=== PATIENT | male | born 1985 | race Caucasian/White ===

== ENCOUNTER 2019-03-22 09:41 | Day surgery (SDC) | payer OTHER ==
[2019-03-22] MEDS ORDERED: CEFAZOLIN SODIUM IN 0.9 % NACL 2 GM/100 ML BAG IV ONE (10:03)
--- NOTE | 2019-03-22 10:08 | ANESTHESIA ---
Pre-Anesthesia VS, & Labs - Diagnosis inflammatory reaction to hardware - Procedure Removal Hardware Right Jaw Vital Signs: 126/71, 100%, 68, 16, 36.7 - NPO >8 hours Home Medications and Allergies Home Medications: Ambulatory Orders Amoxicillin 500 mg PO TID 03/17/19 Amoxicillin 500 mg PO TID 03/17/19 Allergies/Adverse Reactions: Allergies Allergy/AdvReac Type Severity Reaction Status Date / Time melon Allergy throat Verified 03/17/19 13:39 itches Anes History & Medical History - Anesthetic History Anesthesia Complications: reports: No previous complications - Medical History Cardiovascular: reports: None Pulmonary: reports: None Gastrointestinal: reports: None Urinary: reports: None Musculoskeletal: reports: None Endocrine/Autoimmune: reports: None, Other (elevated BMI) Skin: reports: Other Smoking Status: Never smoker - Surgical History Orthopedic: Other (jaw surgery x2) Exam General: Alert Dental: WNL Mouth Opening: Greater than 4 Fingerbreadths Neck Mobility: Normal Mallampati classification: II Thyromental Distance: greater than 6 cm Respiratory: Lungs clear Cardiovascular: Regular rate, Normal S1, Normal S2 Plan Anesthesia Type: General Consent for Procedure(s) Verified and Reviewed: Yes Code Status: Attempt Resuscitation ASA classification: 2-Mild systemic disease Is this case an emergency?: No
[2019-03-22] MEDS ORDERED: LACTATED RINGERS 1,000 ML IV ONE ×2 (10:21→16:40)
[2019-03-22] MEDS ORDERED: LIDOCAINE MPF 2%-EPI 1:200000 20 ML VIAL ONE (12:23)
[2019-03-22] MEDS ORDERED: CHLORHEXIDINE GLUCONATE 15 ML UDC PO ONE (12:24)
[2019-03-22] MEDS ORDERED: LIDOCAINE MPF 2%-EPI 1:200000 20 ML VIAL SUBQ ONE ×2 (13:42)
[2019-03-22] MEDS ORDERED: PROPOFOL 200 MG/20 ML VIAL IVP ONE (13:50)
[2019-03-22] MEDS ORDERED: fentaNYL 250 MCG/5 ML VIAL IVP ONE (13:50)
[2019-03-22] MEDS ORDERED: LIDOCAINE-MPF 2% 5 ML VIAL IM ONE (13:50)
[2019-03-22] MEDS ORDERED: DEXAMETHASONE 4 MG/ML VIAL IVP ONE (13:50)
[2019-03-22] MEDS ORDERED: ACETAMINOPHEN 1,000 MG/100 ML 100 ML IV ONE (13:50)
[2019-03-22] MEDS ORDERED: ROCURONIUM 50 MG/5 ML VIAL IVP ONE (13:50)
[2019-03-22] MEDS ORDERED: MIDAZOLAM 2 MG/2 ML VIAL IVP ONE (13:50)
[2019-03-22] MEDS ORDERED: ONDANSETRON 4 MG/2 ML VIAL IVP ONE (13:50)
[2019-03-22] MEDS: fentaNYL 100 MCG/2 ML VIAL ONE ×2 (16:19→16:24)
[2019-03-22] MEDS ORDERED: oxyCODONE 5 MG TABLET PO PRN (16:44)
[2019-03-22] MEDS ORDERED: MORPHINE 2 MG/ML CARPUJECT IVP PRN (16:44)
[2019-03-22] MEDS ORDERED: ONDANSETRON 4 MG/2 ML VIAL IVP PRN (16:45)
[2019-03-22] MEDS ORDERED: KETOROLAC 15 MG/ML VIAL ONE (16:52)
[2019-03-22 17:32] VITALS: BP 128/89
--- NOTE | 2019-03-23 08:31 | OPERATIVE REPORT ---
DATE OF SERVICE: 03/22/2019 Physician: Jamal Maher DDS PROCEDURES PERFORMED 1. Removal of deep hardware from the right mandible. 2. Osteoplasty of the right mandible. 3. Removal of deep hardware from the mandibular symphysis. 4. Osteoplasty of the mandibular symphysis. 5. Removal of deep hardware from the left mandible. 6. Osteoplasty of the left mandible. 7. Removal of deep hardware from the right maxilla. 8. Osteoplasty of the right maxilla. 9. Removal of deep hardware from the left maxilla. 10. Osteoplasty of the left maxilla. 11. Excision of chronic fistula from the right mandibular vestibule with closure of the soft tissues. The resultant wound was 2.5 cm in length and 1 cm in diameter PREOPERATIVE DIAGNOSES 1. 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 2. Chronic sinusitis of the bilateral maxillary sinuses of unclear etiology. PRIMARY SURGEON: Jamal Maher DDS ASSISTANTS: Monique and Tessie. ANESTHESIA TYPE: General anesthesia via nasal endotracheal intubation. ANESTHETISTS: Anton and Vonda. DRAINS, PACKS, CATHETERS: None. IMPLANTS REMOVED: Nine plates and their associated screws. All hardware was removed with the exception of three positional screws that were placed in the left mandible. ESTIMATED BLOOD LOSS: 50 mL COMPLICATIONS: None. INDICATIONS FOR PROCEDURE: Patient is a 33-year-old male who has a history of orthognathic surgery. For the past several years, he has had recurrent abscesses of the right mandible secondary to exposed hardware. Clinical and radiographic examination was consistent with hardware in the right mandible. He also was having problems with chronic sinusitis of an unclear etiology that has been occurring ever since his surgery. There is concern for future exposure of the hardware of the left mandible as well, because of its superior location, as well as concern that the hardware in the maxilla is causing the chronic sinusitis. It was decided that removal of the hardware was indicated. The risks, benefits and alternatives of this plan were discussed with patient including pain, swelling, bleeding, infection, need for further surgeries, osteomyelitis. Adequate time was given to answer all questions and informed consent was obtained. DESCRIPTION OF PROCEDURE: Patient was brought to the main operating room and placed in a supine position on the operating table. General anesthesia was induced by the anesthesia team and the airway was secured with a nasal endotracheal tube, which was secured to the forehead. Patient was prepped and draped in the standard sterile fashion for removal of hardware from the face. All pressure points were padded and checked. The eyes were protected with Tegaderms. A formal timeout was executed. Local anesthesia was achieved with 9 mL of 2% lidocaine with 1:100,000 epinephrine. A throat pack was placed. Attention was directed to the right mandible. An incision was made down to bone. Subperiosteal dissection was performed. The incision went around the fistula of the right mandible, and this was excised. Care was taken not to carry out the incision too far anteriorly because of the presence of the mental nerve. A company tanker truck driver was used to back out most of the screws, but some of the screws could only be accessed through a trocar incision. A trocar incision was made in the right cheek, 115 blade width and length. The instruments were then passed through the trocar incision to remove the remaining screws. The plate was then removed and osteoplasty was performed with rotary instruments under copious irrigation. The positional screws, 3 of them of the right mandible were then also removed. This was extremely difficult and was accomplished only after a significant struggle. Attention was then directed to the right maxilla. A keen incision was made down to bone. Subperiosteal dissection was performed and all 3 of the plates were exposed. The screws were backed out with a company tanker truck driver. Some of the screws were very integrated into the bone and had to be removed by removing some of the bone around the implants in a trephine fashion. Once all the hardware was removed, osteoplasty of the right maxilla was performed under copious irrigation. The site was copiously irrigated. The right mandible was also copiously irrigated and both sites were closed with 3-0 chromic gut suture. Attention was then directed to the anterior mandible. An incision was made in the depth of the vestibule down to bone. The hardware was easily encountered. Subperiosteal dissection was performed to uncover the hardware completely. Again, this hardware was very well integrated into the mandible and had to be removed by creating small trephine osteotomies around three of the screws. The hardware was all completely removed, and osteoplasty of the anterior mandible was performed. Site was irrigated copiously, and the wound was closed with 3-0 chromic gut suture. Attention was directed to the left mandible. An incision was made down to bone. The plate was easily encountered. Subperiosteal dissection was performed. the plate and the screws were removed by unscrewing the screws. Removal of the screws in this area was somewhat difficult a trochar incision needed to be made and the company tanker truck driver directed at a better angle. 1 of the screws had to be removed by using the bur to remove bone around the screw. After this was done an osteoplasty was performed and the site was irrigated copiously. The wound was then closed. The 3 positional screws that were further posterior in the mandible were left in place. The wound was closed with a 4-0 chromic gut suture. Attention was then directed to the left maxilla. a keen incision down to bone was performed. Subperiosteal dissection was performed and the plates were easily encountered. The screws were backed out with a company tanker truck driver. The plates were removed. Bone had to be removed especially over the anterior 2 plates in order to remove the screws and the plates. Osteoplasty of the left maxilla was performed with a bur. The site was copiously irrigated.the wound was closed with 4-0 chromic gut suture. The mouth was cleansed and the throat pack was removed. The patient's face was cleansed and the eyes were irrigated. Care of the patient was returned to the anesthesia team. The patient was uneventfully emerged from anesthesia and extubated. He was stable at the time of his transfer to the PACU. TD: 03/22/2019 16:40 MTDD
== END 2019-03-22 09:42 | disposition home or self-care (01) ==
LOC: SDS 09:41
PROVIDERS: ATTEND Dentist Oral and Maxillofacial Surgery
PROC: 0NPW04Z Removal of Internal Fixation Device from Facial Bone, Open Approach (ICD-10-PCS; principal; 2019-03-22 11:45)
DX: T84.69XA Infection and inflammatory reaction due to internal fixation device of other site, initial encounter (principal); Y83.8 Other surgical procedures as the cause of abnormal reaction of the patient, or of later complication, without mention of misadventure at the time of the procedure; M89.8X8 Other specified disorders of bone, other site; D89.89 Other specified disorders involving the immune mechanism, not elsewhere classified; Z87.76 Personal history of (corrected) congenital malformations of integument, limbs and musculoskeletal system; Z98.890 Other specified postprocedural states
CPT/HCPCS: 20680; A9270; J0131; J0690; J3010; J7120

== ENCOUNTER 2019-04-04 21:45 | Emergency (ER) | payer OTHER ==
[2019-04-04 22:18] LABS: BASOPHILS # (AUTO) 0.1 10^3/uL (0.0-0.1); BASOPHILS % (AUTO) 0.8 %; EOSINOPHILS # (AUTO) 0.5 10^3/uL (0.0-0.7); EOSINOPHILS % (AUTO) 5.5 %; HGB - HEMOGLOBIN 13.9 g/dL (14.0-18.0); LYMPHOCYTES # (AUTO) 3.3 10^3/uL (1.5-3.5); LYMPHOCYTES % (AUTO) 33.2 %; MEAN CORPUSCULAR HEMOGLOBIN 31.1 pg (27.0-31.0); MEAN CORPUSCULAR HGB CONC 34.3 g/dL (32.0-36.0); MEAN CORPUSCULAR VOLUME 90.6 fL (80.0-94.0); MEAN PLATELET VOLUME 10.6 fL (7.4-11.4); MONOCYTES # (AUTO) 0.6 10^3/uL (0.0-1.0); MONOCYTES % (AUTO) 5.7 %; NEUTROPHILS # (AUTO) 5.4 10^3/uL (1.5-6.6); NEUTROPHILS % (AUTO) 54.4 %; PLT - PLATELET COUNT 232 10^3/uL (130-450); RED BLOOD COUNT 4.47 10^6/uL (4.70-6.10); RED CELL DISTRIBUTION WIDTH 12.4 % (12.0-15.0); WHITE BLOOD COUNT 9.8 x10^3/uL (4.8-10.8)
--- NOTE | 2019-04-04 22:28 | ED Physician Documentation ---
PD HPI ABD PAIN - Stated complaint Stated Complaint: ABD/BACK PX/NAUSEA/VOM - Chief complaint Chief Complaint: Abd Pain - History obtained from History obtained from: Patient - History of Present Illness Timing - onset: Enter time (20:00), Today Timing - details: Abrupt onset, Waxing and waning Pain level now: 2 Quality: Pain Location: Epigastric Radiation: Other (radiates across mid/upper abdomen "like a band across my stomach" (per patient)) Improved by: Other (nothing) Worsened by: Other (no exacerbating factors) Associated symptoms: Nausea, Vomiting. No: Fever, Diarrhea, Constipation Similar symptoms before: Has not had sx before Recently seen: Not recently seen - Additional information Additional information: symptoms have nearly resolved by the time of this evaluation. c/o sudden onset abdominal pain across upper abdomen with nausea and vomiting. Onset 8 PM while at home at rest. Review of Systems Constitutional: reports: Reviewed and negative Cardiac: reports: Reviewed and negative Respiratory: reports: Reviewed and negative GI: reports: Abdominal Pain, Nausea, Vomiting. denies: Constipation, Diarrhea : denies: Dysuria, Frequency Musculoskeletal: denies: Back pain PD PAST MEDICAL HISTORY - Past Medical History Past Medical History: Yes Cardiovascular: None Respiratory: None Endocrine/Autoimmune: None, Other GI: None : None HEENT: Chronic sinusitis Musculoskeletal: None Derm: Other - Past Surgical History Past Surgical History: Yes Ortho: Other - Present Medications Home Medications: Ambulatory Orders Medication Instructions Recorded Confirmed No Known Home Medications 04/04/19 04/04/19 - Allergies Allergies/Adverse Reactions: Allergies Allergy/AdvReac Type Severity Reaction Status Date / Time melon Allergy throat Verified 04/04/19 22:02 itches - Social History Does the pt smoke?: No Smoking Status: Never smoker Does the pt drink ETOH?: Yes Does the pt have substance abuse?: No - Immunizations Immunizations are current?: Yes - POLST Patient has POLST: No PD ED PE NORMAL - Vitals Vital signs reviewed: Yes - General General: Alert and oriented X 3, No acute distress, Well developed/nourished - Cardiac Cardiac: RRR, No murmur - Respiratory Respiratory: No respiratory distress, Clear bilaterally - Abdomen Abdomen: Soft, Non tender, Non distended - Back Back: No CVA TTP - Derm Derm: Normal color, Warm and dry Results - Vitals Vitals: Vital Signs - 24 hr 04/04/19 04/04/19 04/05/19 22:00 23:03 00:06 Temperature 36.7 C 37.0 C Heart Rate 79 73 79 Respiratory 18 15 16 Rate Blood Pressure 137/94 H 130/82 H 125/76 O2 Saturation 99 99 100 04/05/19 01:50 Temperature 36.5 C Heart Rate 77 Respiratory 18 Rate Blood Pressure 124/76 O2 Saturation 100 Oxygen O2 Source Room air - Labs Labs: Laboratory Tests 04/04/19 04/04/19 04/04/19 22:10 22:10 23:45 WBC 9.8 RBC 4.47 L Hgb 13.9 L Hct 40.5 L MCV 90.6 MCH 31.1 H MCHC 34.3 RDW 12.4 Plt Count 232 MPV 10.6 Neut # (Auto) 5.4 Lymph # (Auto) 3.3 [place] # (Auto) 0.6 Eos # (Auto) 0.5 Baso # (Auto) 0.1 Absolute Nucleated RBC 0.00 Nucleated RBC % 0.0 Sodium 141 Potassium 3.3 L Chloride 105 Carbon Dioxide 28 Anion Gap 8.0 BUN 13 Creatinine 0.9 Estimated GFR (MDRD) 97 Glucose 109 H Calcium 9.3 Total Bilirubin 0.4 AST 23 ALT 44 Alkaline Phosphatase 49 Total Protein 7.9 Albumin 4.7 Globulin 3.2 Albumin/Globulin Ratio 1.5 Lipase 52 H Urine Color YELLOW Urine Clarity CLEAR Urine pH 6.0 Ur Specific [place] 1.015 Urine Protein NEGATIVE Urine Glucose (UA) NEGATIVE Urine Ketones NEGATIVE Urine Occult Blood NEGATIVE Urine Nitrite NEGATIVE Urine Bilirubin NEGATIVE Urine Urobilinogen 0.2 (NORMAL) Ur Leukocyte Esterase NEGATIVE Ur Microscopic Review NOT INDICATED Urine Culture Comments NOT INDICATED - Rads (name of study) RUQ US Radiology: Prelim report reviewed, See rad report PD MEDICAL DECISION MAKING - ED course Complexity details: reviewed results, re-evaluated patient, considered differential, d/w patient Departure - Departure Disposition: 01 Home, Self Care Clinical Impression: Abdominal pain Condition: Good Instructions: ED Gallstone W Biliary Colic, ED Abdominal Pain Unkn Cause Male Follow-Up: Alden Sharma MD [Provider Admit Priv/Credential] - Discharge Date/Time: 04/05/19 02:01
[2019-04-04 22:33] LABS: ALBUMIN 4.7 g/dL (3.2-5.5); ALBUMIN/GLOBULIN RATIO 1.5 (1.0-2.2); BILIRUBIN,TOTAL 0.4 mg/dL (0.2-1.0); CALCIUM 9.3 mg/dL (8.5-10.3); CREATININE 0.9 mg/dL (0.6-1.2); TOTAL PROTEIN 7.9 g/dL (6.7-8.2)
[2019-04-05 00:08] LABS: BILIRUBIN,URINE NEGATIVE (NEGATIVE); GLUCOSE, URINE (UA) NEGATIVE (NEGATIVE); KETONES,URINE (UA) NEGATIVE (NEGATIVE); LEUKOCYTE ESTERASE, URINE NEGATIVE (NEGATIVE); NITRITE,URINE NEGATIVE (NEGATIVE); OCCULT BLOOD,URINE NEGATIVE (NEGATIVE); PROTEIN,URINE NEGATIVE (NEGATIVE); UROBILINOGEN,URINE 0.2 (NORMAL) E.U./dL (NORMAL)
[2019-04-05 00:09] LABS: CLARITY,URINE CLEAR (CLEAR)
--- NOTE | 2019-04-05 01:32 | Ultrasound Report ---
Reason: RUQ, epigastric pain Procedure Date: 04/05/2019 Accession Number: [id number] / [id number] Procedure: US - Abdomen Limited CPT Code: FULL RESULT: EXAM: ABDOMEN ULTRASOUND LIMITED, RUQ EXAM DATE: 04/05/2019 01:17 AM. CLINICAL HISTORY: RUQ, epigastric pain. COMPARISON: None. TECHNIQUE: Real-time scanning was performed with static images obtained. FINDINGS: Liver: Echogenic. 14.5 cm. Main portal vein flow: Hepatopetal. Gallbladder: Gallbladder polyps are suspected. There may be a small stone as well. Wall thickness is normal at 2.7 mm. No focal tenderness is noted over the gallbladder. Biliary System: CBD measures 2.8 mm. No intrahepatic or extrahepatic ductal dilatation. Other: Right kidney measures 11.4 cm and appears normal. Inferior vena cava is patent where seen. Pancreas is not well seen due to body habitus and bowel gas. IMPRESSION: 1. Probable gallbladder polyps and possibly a small stone, but no evidence of cholecystitis. 2. Fatty liver. RADIA
[2019-04-05] MEDS ORDERED: POTASSIUM CHLORIDE 20 MEQ TABLET PO STA (01:48)
[2019-04-05 02:01] VITALS: BP 124/76
== END 2019-04-05 02:01 | disposition home or self-care (01) ==
LOC: ED 21:45
DX: R10.9 Unspecified abdominal pain (principal)
CPT/HCPCS: 36415; 76705; 80053; 81003; 83690; 85025; 99282; 99284; A9270; 81001; 87086

== ENCOUNTER 2020-07-31 16:51 | Day surgery (SDC) | payer OTHER ==
[2020-07-31 17:25] LABS: BASOPHILS # (AUTO) 0.1 10^3/uL (0.0-0.1); BASOPHILS % (AUTO) 0.7 %; EOSINOPHILS # (AUTO) 0.3 10^3/uL (0.0-0.7); EOSINOPHILS % (AUTO) 2.7 %; HGB - HEMOGLOBIN 14.9 g/dL (14.0-18.0); LYMPHOCYTES % (AUTO) 20.4 %; MEAN CORPUSCULAR HEMOGLOBIN 30.9 pg (27.0-31.0); MEAN CORPUSCULAR HGB CONC 33.9 g/dL (32.0-36.0); MEAN CORPUSCULAR VOLUME 91.1 fL (80.0-94.0); MEAN PLATELET VOLUME 10.5 fL (7.4-11.4); MONOCYTES # (AUTO) 0.7 10^3/uL (0.0-1.0); MONOCYTES % (AUTO) 6.8 %; NEUTROPHILS # (AUTO) 6.7 10^3/uL (1.5-6.6); NEUTROPHILS % (AUTO) 69.1 %; PLT - PLATELET COUNT 190 10^3/uL (130-450); RED BLOOD COUNT 4.82 10^6/uL (4.70-6.10); RED CELL DISTRIBUTION WIDTH 12.4 % (12.0-15.0); WHITE BLOOD COUNT 9.7 x10^3/uL (4.8-10.8)
[2020-07-31] MEDS ORDERED: IOVERSOL 320 100 ML VIAL IVP ONE ×2 (17:31→18:29)
[2020-07-31 17:40] LABS: ALBUMIN 5.2 g/dL (3.2-5.5); ALBUMIN/GLOBULIN RATIO 1.6 (1.0-2.2); CALCIUM 9.4 mg/dL (8.5-10.3); CREATININE 0.8 mg/dL (0.6-1.2); TOTAL PROTEIN 8.4 g/dL (6.7-8.2)
--- NOTE | 2020-07-31 18:24 | CT Report ---
PROCEDURE: Abdomen/Pelvis W INDICATIONS: RLQ abd pain CONTRAST: IV CONTRAST: Optiray 320 ml: 100 PO CONTRAST: *NO PO CONTRAST TECHNIQUE: After the administration of intravenous contrast, 5 mm thick sections acquired from the diaphragms to the symphysis. 5 mm thick coronal and sagittal reformats were acquired. For radiation dose reducti on, the following was used: automated exposure control, adjustment of mA and/or kV according to casandra ent size. COMPARISON: None. FINDINGS: Image quality: Excellent. ABDOMEN: Lung bases: Lung bases are clear. Heart size is normal. Solid organs: Liver and spleen are normal in size and enhancement. Gallbladder within normal limits . Biliary system is non dilated. Pancreas enhances normally. No adrenal nodules. Kidneys demonstr ate normal size and enhancement, without hydronephrosis. Peritoneum and bowel: There is an appendicolith at the base of the appendix measuring approximately 3 mm. The appendix is dilated up to 1.3 cm with wall thickening and mucosal hyperenhancement, along wi th adjacent fluid and fat stranding. Remaining bowel is unremarkable. Nodes and vessels: No retroperitoneal or mesenteric adenopathy by size criteria. Aorta and inferior vena cava are normal in size. Miscellaneous: No ventral hernias. PELVIS: Genitourinary: Bladder wall thickness is normal. Miscellaneous: No inguinal hernias or adenopathy. Bones: No suspicious bony lesions. No vertebral body compression fractures. IMPRESSION: Findings of acute appendicitis without evidence of rupture or abscess. Reviewed by: César Singer MD on 07/31/2020 6:23 PM PST Approved by: César Singer MD on 07/31/2020 6:23 PM PST Station ID: [id number]
--- NOTE | 2020-07-31 18:24 | ED Physician Documentation ---
PD HPI ABD PAIN - Stated complaint Stated Complaint: ABD PX - Chief complaint Chief Complaint: Abd Pain - History obtained from History obtained from: Patient - History of Present Illness Associated symptoms: No: Fever, Hematemesis, Diarrhea, Constipation, Melena - Additional information Additional information: 35-year-old male presents to the emergency department the right lower quadrant abdominal pain today. Started approximately 5 AM. Has gradually worsened throughout the day. Decreased appetite. He states that he did have half a sandwich at about 4 PM. No vomiting. No nausea. No fevers. No diarrhea. No constipation. Worse with movement, better with rest. No abdominal surgeries in the past. Review of Systems Constitutional: denies: Fever, Chills GI: denies: Vomiting, Diarrhea Skin: denies: Rash Musculoskeletal: denies: Neck pain, Back pain Neurologic: denies: Headache PD PAST MEDICAL HISTORY - Past Medical History Past Medical History: Yes Cardiovascular: None Respiratory: None Endocrine/Autoimmune: None, Other GI: None : None HEENT: Chronic sinusitis Musculoskeletal: None Derm: Other - Past Surgical History Past Surgical History: Yes Ortho: Other - Present Medications Home Medications: Ambulatory Orders Medication Instructions Recorded Confirmed No Known Home Medications 04/04/19 07/31/20 - Allergies Allergies/Adverse Reactions: Allergies Allergy/AdvReac Type Severity Reaction Status Date / Time melon Allergy throat Verified 07/31/20 17:06 itches - Social History Does the pt smoke?: No Smoking Status: Never smoker Does the pt drink ETOH?: Yes Does the pt have substance abuse?: No - Immunizations Immunizations are current?: Yes - POLST Patient has POLST: No PD ED PE NORMAL - Vitals Vital signs reviewed: Yes - General General: Alert and oriented X 3, No acute distress, Well developed/nourished - HEENT HEENT: Moist mucous membranes - Neck Neck: Supple, no meningeal sign - Cardiac Cardiac: RRR, Strong equal pulses - Respiratory Respiratory: No respiratory distress, Clear bilaterally - Abdomen Abdomen: Soft, Non distended, Other (Tender to palpation over the right lower quadrant, at McBurney's point. Positive rebound and guarding. Negative Rovsing and obturator signs) - Back Back: No CVA TTP - Derm Derm: Warm and dry - Neuro Neuro: Alert and oriented X 3 Results - Vitals Vitals: Vital Signs - 24 hr 07/31/20 07/31/20 07/31/20 17:00 19:21 20:09 Temperature 37.3 C 37.3 C 37.0 C Heart Rate 87 83 Heart Rate [ 74 Brachial] Respiratory 16 16 16 Rate Blood Pressure 134/89 H 111/83 H Blood Pressure 138/89 H [Left Brachial artery] O2 Saturation 97 98 100 Oxygen O2 Source Room air - Labs Labs: Laboratory Tests 07/31/20 07/31/20 07/31/20 17:11 17:11 18:30 WBC 9.7 RBC 4.82 Hgb 14.9 Hct 43.9 MCV 91.1 MCH 30.9 MCHC 33.9 RDW 12.4 Plt Count 190 MPV 10.5 Neut # (Auto) 6.7 H Lymph # (Auto) 2.0 [place] # (Auto) 0.7 Eos # (Auto) 0.3 Baso # (Auto) 0.1 Absolute Nucleated RBC 0.00 Nucleated RBC % 0.0 Sodium 138 Potassium 3.4 L Chloride 101 Carbon Dioxide 27 Anion Gap 10.0 BUN 12 Creatinine 0.8 Estimated GFR (MDRD) 109 Glucose 100 Calcium 9.4 Total Bilirubin 1.0 AST 22 ALT 32 Alkaline Phosphatase 56 Total Protein 8.4 H Albumin 5.2 Globulin 3.2 Albumin/Globulin Ratio 1.6 Lipase 31 Urine Color Urine Clarity Urine pH Ur Specific [place] Urine Protein Urine Glucose (UA) Urine Ketones Urine Occult Blood Urine Nitrite Urine Bilirubin Urine Urobilinogen Ur Leukocyte Esterase Ur Microscopic Review Urine Culture Comments Nasal Adenovirus (PCR) NOT DETECTED Nasal B. parapertussis DNA (PCR) NOT DETECTED Nasal Coronavir 229E PCR NOT DETECTED Nasal Coronavir HKU1 PCR NOT DETECTED Nasal Coronavir NL63 PCR NOT DETECTED Nasal Coronavir OC43 PCR NOT DETECTED Nasal Enterovir/Rhinovir PCR NOT DETECTED Nasal Influenza B PCR NOT DETECTED Nasal Influenza A PCR NOT DETECTED Nasal Parainfluen 1 PCR NOT DETECTED Nasal Parainfluen 2 PCR NOT DETECTED Nasal Parainfluen 3 PCR NOT DETECTED Nasal Parainfluen 4 PCR NOT DETECTED Nasal RSV (PCR) NOT DETECTED Nasal B.pertussis DNA PCR NOT DETECTED Nasal C.pneumoniae (PCR) NOT DETECTED Shailesh Human Metapneumo PCR NOT DETECTED Nasal M.pneumoniae (PCR) NOT DETECTED Nasal SARS-CoV-2 (PCR) NOT DETECTED 07/31/20 22:00 WBC RBC Hgb Hct MCV MCH MCHC RDW Plt Count MPV Neut # (Auto) Lymph # (Auto) [place] # (Auto) Eos # (Auto) Baso # (Auto) Absolute Nucleated RBC Nucleated RBC % Sodium Potassium Chloride Carbon Dioxide Anion Gap BUN Creatinine Estimated GFR (MDRD) Glucose Calcium Total Bilirubin AST ALT Alkaline Phosphatase Total Protein Albumin Globulin Albumin/Globulin Ratio Lipase Urine Color YELLOW Urine Clarity CLEAR Urine pH 6.0 Ur Specific [place] 1.010 Urine Protein NEGATIVE Urine Glucose (UA) NEGATIVE Urine Ketones NEGATIVE Urine Occult Blood NEGATIVE Urine Nitrite NEGATIVE Urine Bilirubin NEGATIVE Urine Urobilinogen 0.2 (NORMAL) Ur Leukocyte Esterase NEGATIVE Ur Microscopic Review NOT INDICATED Urine Culture Comments NOT INDICATED Nasal Adenovirus (PCR) Nasal B. parapertussis DNA (PCR) Nasal Coronavir 229E PCR Nasal Coronavir HKU1 PCR Nasal Coronavir NL63 PCR Nasal Coronavir OC43 PCR Nasal Enterovir/Rhinovir PCR Nasal Influenza B PCR Nasal Influenza A PCR Nasal Parainfluen 1 PCR Nasal Parainfluen 2 PCR Nasal Parainfluen 3 PCR Nasal Parainfluen 4 PCR Nasal RSV (PCR) Nasal B.pertussis DNA PCR Nasal C.pneumoniae (PCR) Shailesh Human Metapneumo PCR Nasal M.pneumoniae (PCR) Nasal SARS-CoV-2 (PCR) - Rads (name of study) CT abdomen and pelvis Radiology: Prelim report reviewed, EMP read contemporaneously, See rad report (Acute appendicitis without perforation or abscess) PD MEDICAL DECISION MAKING - ED course Complexity details: reviewed results, re-evaluated patient, considered differential, d/w patient, d/w corporate learning consultant ED course: 35-year-old male with acute appendicitis. Bronwyn Ortegan Discussed the case with Dr. Sharma, general surgery who will take the patient to the operating room in the morning. He has only been n.p.o. for about 2 hours at this point. This document was made in part using voice recognition software. While efforts are made to proofread this document, sound alike and grammatical errors may occur. Departure - Departure Disposition: ED Transfer to [facility] Clinical Impression: Acute appendicitis Qualifiers: Acute appendicitis type: with localized peritonitis Appendicitis gangrene presence: without gangrene Appendicitis perforation presence: without perforation Appendicitis abscess presence: without abscess Qualified Code(s): K35.30 - Acute appendicitis with localized peritonitis, without perforation or gangrene Condition: Stable Discharge Date/Time: 07/31/20 20:10
[2020-07-31] MEDS ORDERED: SODIUM CHLORIDE 0.9% 1,000 ML IV STA (18:27)
[2020-07-31] MEDS ORDERED: PIPERACILLIN/TAZOBACTAM 3.375 GM in SODIUM CHLORIDE 0.9% MINIBAG 100 ML IV STA (18:27)
[2020-07-31] MEDS ORDERED: MORPHINE 2 MG/ML CARPUJECT IVP STA (18:31)
[2020-07-31] MEDS ORDERED: SODIUM CHLORIDE FLUSH 0.9% 10 ML SYRINGE IVP PRN (19:06)
[2020-07-31] MEDS ORDERED: HYDROmorphone 0.5 MG/0.5 ML SYRINGE IVP PRN (19:06)
[2020-07-31] MEDS ORDERED: PANTOPRAZOLE 40 MG TABLET PO SCH (20:00)
[2020-07-31] MEDS ORDERED: PIPERACILLIN/TAZOBACTAM 3.375 GM in SODIUM CHLORIDE 0.9% MINIBAG 100 ML IV SCH (20:00)
[2020-07-31 20:01] LABS: C. PNEUMONIAE- RESP PCR PANEL NOT DETECTED
[2020-07-31] MEDS: ACETAMINOPHEN 1,000 MG/100 ML 100 ML IV SCH (20:43)
[2020-07-31] MEDS: NS W/20 MEQ KCL 1,000 ML IV SCH (20:44)
[2020-07-31 22:11] LABS: BILIRUBIN,URINE NEGATIVE (NEGATIVE); GLUCOSE, URINE (UA) NEGATIVE (NEGATIVE); KETONES,URINE (UA) NEGATIVE (NEGATIVE); LEUKOCYTE ESTERASE, URINE NEGATIVE (NEGATIVE); NITRITE,URINE NEGATIVE (NEGATIVE); OCCULT BLOOD,URINE NEGATIVE (NEGATIVE); PROTEIN,URINE NEGATIVE (NEGATIVE); UROBILINOGEN,URINE 0.2 (NORMAL) E.U./dL (NORMAL)
[2020-07-31 22:21] LABS: CLARITY,URINE CLEAR (CLEAR)
[2020-08-01] MEDS: SODIUM CHLORIDE FLUSH 0.9% 10 ML SYRINGE IVP SCH ×3 (00:15→16:14)
[2020-08-01] MEDS: ACETAMINOPHEN 1,000 MG/100 ML 100 ML IV SCH ×2 (01:29→09:05)
[2020-08-01] MEDS: PIPERACILLIN/TAZOBACTAM 3.375 GM in SODIUM CHLORIDE 0.9% MINIBAG 100 ML IV SCH ×2 (01:54→07:56)
[2020-08-01] MEDS: NS W/20 MEQ KCL 1,000 ML IV SCH (08:59)
[2020-08-01] MEDS ORDERED: MORPHINE 2 MG/ML CARPUJECT IVP PRN (11:54)
[2020-08-01] MEDS ORDERED: NALOXONE 0.4 MG/ML VIAL IVP PRN (11:54)
[2020-08-01] MEDS ORDERED: ATROPINE ABBOJECT 1 MG/10 ML SYRINGE IVP PRN (11:54)
[2020-08-01] MEDS ORDERED: METOCLOPRAMIDE 10 MG/2 ML VIAL IVP PRN (11:54)
[2020-08-01] MEDS ORDERED: ONDANSETRON 4 MG/2 ML VIAL IVP PRN ×2 (11:54→14:47)
[2020-08-01] MEDS ORDERED: HYDROmorphone 0.5 MG/0.5 ML SYRINGE IVP PRN ×3 (11:54→15:06)
[2020-08-01] MEDS ORDERED: ePHEDrine 50 MG/ML VIAL IVP PRN (11:54)
[2020-08-01] MEDS ORDERED: fentaNYL 100 MCG/2 ML VIAL IVP PRN (11:54)
--- NOTE | 2020-08-01 11:54 | ANESTHESIA ---
Pre-Anesthesia VS, & Labs - Diagnosis Acute Appendicitis - Procedure Lap Appy Vital Signs: Temp Pulse Resp BP Pulse Ox 36.6 C 59 L 16 125/71 100 08/01/20 11:19 08/01/20 11:19 08/01/20 11:19 08/01/20 11:19 08/01/20 11:19 Height: 6 ft Weight (kg): 104.5 kg Body Mass Index: 31.2 BMI Classification: Obese - NPO >8 hours - Lab Results Current Lab Results: Laboratory Tests 07/31/20 17:11: Sodium 138, Potassium 3.4 L, Chloride 101, Carbon Dioxide 27, Anion Gap 10.0, BUN 12, Creatinine 0.8, Estimated GFR (MDRD) 109, Glucose 100, Calcium 9.4, Total Bilirubin 1.0, AST 22, ALT 32, Alkaline Phosphatase 56, Total Protein 8.4 H, Albumin 5.2, Globulin 3.2, Albumin/Globulin Ratio 1.6, Lipase 31 07/31/20 17:11: WBC 9.7, RBC 4.82, Hgb 14.9, Hct 43.9, MCV 91.1, MCH 30.9, MCHC 33.9, RDW 12.4, Plt Count 190, MPV 10.5, Neut # (Auto) 6.7 H, Lymph # (Auto) 2.0, [place] # (Auto) 0.7, Eos # (Auto) 0.3, Baso # (Auto) 0.1, Absolute Nucleated RBC 0.00, Nucleated RBC % 0.0 Fish Bones: 07/31/20 17:11 07/31/20 17:11 Home Medications and Allergies Active Medications Hydromorphone HCl (Hydromorphone 0.5 Mg/0.5 Ml Syringe) 1 mg IVP Q2H PRN PRN Reason: PAIN Potassium Chloride/Sodium Chloride (Normal Saline 0.9% W/20 Meq Kcl) 1,000 mls @ 100 mls/hr IV .Q10H BIENVENIDO Last Infusion: 08/01/20 09:20 Dose: 100 mls/hr Documented by: Acetaminophen (Ofirmev) 100 mls @ 400 mls/hr IV Q6H BIENVENIDO Last Infusion: 08/01/20 09:20 Dose: Infused Documented by: Piperacillin Sod/Tazobactam (Sod 3.375 gm/ Sodium Chloride) 100 mls @ 200 mls/hr IV Q6H BIENVENIDO Last Infusion: 08/01/20 08:30 Dose: Infused Documented by: Pantoprazole Sodium (Pantoprazole 40 Mg Tablet) 40 mg PO ONCE BIENVENIDO Stop: 08/01/20 19:59 Last Admin: 07/31/20 20:44 Dose: 40 mg Documented by: Sodium Chloride (Sodium Chloride Flush 0.9% 10 Ml Syringe) 10 ml IVP 0100,0900,1700 BIENVENIDO Last Admin: 08/01/20 09:00 Dose: Not Given Documented by: Sodium Chloride (Sodium Chloride Flush 0.9% 10 Ml Syringe) 10 ml IVP PRN PRN PRN Reason: NEEDED PER PROVIDER ORDERS No Known Home Medications 04/04/19 Allergies/Adverse Reactions: Allergies Allergy/AdvReac Type Severity Reaction Status Date / Time melon Allergy throat Verified 07/31/20 17:06 itches Anes History & Medical History - Anesthetic History Anesthesia Complications: reports: No previous complications Family history of Anesthesia Complications: Denies Family history of Malignant Hyperthermia: Denies - Medical History Cardiovascular: reports: None Pulmonary: reports: None Gastrointestinal: reports: None Urinary: reports: None Musculoskeletal: reports: None Endocrine/Autoimmune: reports: None, Other Skin: reports: Other Smoking Status: Never smoker Psychosocial: reports: No issues indicated History of Cancer?: No - Surgical History Orthopedic: Other (Jaw surgery-no issues with jaw mobility) Plan Anesthesia Type: General Consent for Procedure(s) Verified and Reviewed: Yes Code Status: Attempt Resuscitation ASA classification: 1-Healthy patient Is this case an emergency?: Yes (Discussed anesthesia, consent signed)
[2020-08-01] MEDS ORDERED: LACTATED RINGERS 1,000 ML IV SCH (12:00)
[2020-08-01] MEDS ORDERED: SEVOFLURANE 250 ML LIQUID INH ONE ×2 (12:12→12:40)
[2020-08-01] MEDS ORDERED: LIDOCAINE-MPF 2% 5 ML VIAL ONE (12:23)
[2020-08-01] MEDS ORDERED: PROPOFOL 200 MG/20 ML VIAL IVP ONE (12:23)
[2020-08-01] MEDS ORDERED: fentaNYL 100 MCG/2 ML VIAL ONE ×2 (12:23→14:01)
[2020-08-01] MEDS ORDERED: BUPIVACAINE 0.5%-EPI 1:200000 PF 30 ML VIAL ONE (12:23)
[2020-08-01] MEDS ORDERED: MIDAZOLAM 2 MG/2 ML VIAL ONE (12:23)
[2020-08-01] MEDS ORDERED: DEXAMETHASONE 10 MG/ML VIAL ONE (12:25)
[2020-08-01] MEDS ORDERED: KETOROLAC 30 MG/ML VIAL ONE (12:26)
[2020-08-01] MEDS ORDERED: ROCURONIUM 50 MG/5 ML VIAL ONE ×2 (12:30→13:58)
--- NOTE | 2020-08-01 13:03 | HISTORY & PHYSICAL EXAMINATION ---
Chief Complaint - Chief Complaint Chief Complaint: right lower quadrant abdominal pain x 18 hours Abdominal Pain HPI - Admitted From Admitted from: ED - History Obtained From History obtained from: Patient Exam limitations: No limitations - History of Present Illness Severity at the worst: Moderate Pain Quality: Aching, Cramping Context-Pain started w/: Rest Timing: Gradual onset Duration: Hours: (18 hours), Days: Improved with: Nothing Worsened by: Movement PMH/PSH - Past Medical History Cardiovascular: positive: None Respiratory: positive: None Endocrine/Autoimmune: positive: None, Other GI: positive: None : positive: None HEENT: positive: Chronic sinusitis Musculoskeletal: positive: None Derm: positive: Other MRSA Hx?: No - Past Surgical History Ortho: positive: Other (Jaw surgery-no issues with jaw mobility) Social & Family Hx - Social History Does the pt smoke?: No Smoking Status: Never smoker Does the pt drink ETOH?: Yes Does the pt have substance abuse?: No - POLST Patient has POLST: No Meds/Allgy - Home Medications Home Medications: Ambulatory Orders Medication Instructions Recorded Confirmed No Known Home Medications 04/04/19 07/31/20 - Allergies Allergies/Adverse Reactions: Allergies Allergy/AdvReac Type Severity Reaction Status Date / Time melon Allergy throat Verified 07/31/20 17:06 itches Review of Systems - Constitutional Constitutional: reports: Fatigue (10 pt ros otherwise unremarkable) Exam - Vital Signs Vital Signs: Vital Signs x48h Temp Pulse Resp BP Pulse Ox 08/01/20 11:19 36.6 C 59 L 16 125/71 100 08/01/20 07:47 36.8 C 59 L 14 111/71 100 - Physical Exam General Appearance: positive: No acute distress, Alert Eyes Bilateral: positive: Normal inspection, PERRL, EOMI ENT: positive: No signs of dehydration Neck: positive: No JVD, Trachea midline Respiratory: positive: No respiratory distress Cardiovascular: positive: Regular rate & rhythm Abdomen: positive: No distention, Tenderness (right lower quadrant) Neurologic/Psychiatric: positive: Oriented x3 Results - Lab Results Fish Bones: 07/31/20 17:11 07/31/20 17:11 Other Lab Results: Lab Results x24hrs 07/31/20 07/31/20 07/31/20 Range/Units 22:00 18:30 17:11 WBC (4.8-10.8) x10^3/uL RBC (4.70-6.10) 10^6/uL Hgb (14.0-18.0) g/dL Hct (42.0-52.0) % MCV (80.0-94.0) fL MCH (27.0-31.0) pg MCHC (32.0-36.0) g/dL RDW (12.0-15.0) % Plt Count (130-450) 10^3/uL MPV (7.4-11.4) fL Neut # (Auto) (1.5-6.6) 10^3/uL Lymph # (Auto) (1.5-3.5) 10^3/uL [place] # (Auto) (0.0-1.0) 10^3/uL Eos # (Auto) (0.0-0.7) 10^3/uL Baso # (Auto) (0.0-0.1) 10^3/uL Absolute Nucleated RBC x10^3/uL Nucleated RBC % /100WBC Sodium 138 (135-145) mmol/L Potassium 3.4 L (3.5-5.0) mmol/L Chloride 101 (101-111) mmol/L Carbon Dioxide 27 (21-32) mmol/L Anion Gap 10.0 (6-13) BUN 12 (6-20) mg/dL Creatinine 0.8 (0.6-1.2) mg/dL Estimated GFR (MDRD) 109 (>89) Glucose 100 (70-100) mg/dL Calcium 9.4 (8.5-10.3) mg/dL Total Bilirubin 1.0 (0.2-1.0) mg/dL AST 22 (10-42) IU/L ALT 32 (10-60) IU/L Alkaline Phosphatase 56 (42-121) IU/L Total Protein 8.4 H (6.7-8.2) g/dL Albumin 5.2 (3.2-5.5) g/dL Globulin 3.2 (2.1-4.2) g/dL Albumin/Globulin Ratio 1.6 (1.0-2.2) Lipase 31 (22-51) U/L Urine Color YELLOW Urine Clarity CLEAR (CLEAR) Urine pH 6.0 (5.0-7.5) PH Ur Specific [place] 1.010 (1.002-1.030) Urine Protein NEGATIVE (NEGATIVE) mg/dL Urine Glucose (UA) NEGATIVE (NEGATIVE) mg/dL Urine Ketones NEGATIVE (NEGATIVE) mg/dL Urine Occult Blood NEGATIVE (NEGATIVE) Urine Nitrite NEGATIVE (NEGATIVE) Urine Bilirubin NEGATIVE (NEGATIVE) Urine Urobilinogen 0.2 (NORMAL) (NORMAL) E.U./dL Ur Leukocyte Esterase NEGATIVE (NEGATIVE) Ur Microscopic Review NOT INDICATED Urine Culture Comments NOT INDICATED Nasal Adenovirus (PCR) NOT DETECTED Nasal B. parapertussis DNA (PCR) NOT DETECTED Nasal Coronavir 229E PCR NOT DETECTED Nasal Coronavir HKU1 PCR NOT DETECTED Nasal Coronavir NL63 PCR NOT DETECTED Nasal Coronavir OC43 PCR NOT DETECTED Nasal Enterovir/Rhinovir PCR NOT DETECTED Nasal Influenza B PCR NOT DETECTED Nasal Influenza A PCR NOT DETECTED Nasal Parainfluen 1 PCR NOT DETECTED Nasal Parainfluen 2 PCR NOT DETECTED Nasal Parainfluen 3 PCR NOT DETECTED Nasal Parainfluen 4 PCR NOT DETECTED Nasal RSV (PCR) NOT DETECTED Nasal B.pertussis DNA PCR NOT DETECTED Nasal C.pneumoniae (PCR) NOT DETECTED Shailesh Human Metapneumo PCR NOT DETECTED Nasal M.pneumoniae (PCR) NOT DETECTED Nasal SARS-CoV-2 (PCR) NOT DETECTED 07/31/20 Range/Units 17:11 WBC 9.7 (4.8-10.8) x10^3/uL RBC 4.82 (4.70-6.10) 10^6/uL Hgb 14.9 (14.0-18.0) g/dL Hct 43.9 (42.0-52.0) % MCV 91.1 (80.0-94.0) fL MCH 30.9 (27.0-31.0) pg MCHC 33.9 (32.0-36.0) g/dL RDW 12.4 (12.0-15.0) % Plt Count 190 (130-450) 10^3/uL MPV 10.5 (7.4-11.4) fL Neut # (Auto) 6.7 H (1.5-6.6) 10^3/uL Lymph # (Auto) 2.0 (1.5-3.5) 10^3/uL [place] # (Auto) 0.7 (0.0-1.0) 10^3/uL Eos # (Auto) 0.3 (0.0-0.7) 10^3/uL Baso # (Auto) 0.1 (0.0-0.1) 10^3/uL Absolute Nucleated RBC 0.00 x10^3/uL Nucleated RBC % 0.0 /100WBC Sodium (135-145) mmol/L Potassium (3.5-5.0) mmol/L Chloride (101-111) mmol/L Carbon Dioxide (21-32) mmol/L Anion Gap (6-13) BUN (6-20) mg/dL Creatinine (0.6-1.2) mg/dL Estimated GFR (MDRD) (>89) Glucose (70-100) mg/dL Calcium (8.5-10.3) mg/dL Total Bilirubin (0.2-1.0) mg/dL AST (10-42) IU/L ALT (10-60) IU/L Alkaline Phosphatase (42-121) IU/L Total Protein (6.7-8.2) g/dL Albumin (3.2-5.5) g/dL Globulin (2.1-4.2) g/dL Albumin/Globulin Ratio (1.0-2.2) Lipase (22-51) U/L Urine Color Urine Clarity (CLEAR) Urine pH (5.0-7.5) PH Ur Specific [place] (1.002-1.030) Urine Protein (NEGATIVE) mg/dL Urine Glucose (UA) (NEGATIVE) mg/dL Urine Ketones (NEGATIVE) mg/dL Urine Occult Blood (NEGATIVE) Urine Nitrite (NEGATIVE) Urine Bilirubin (NEGATIVE) Urine Urobilinogen (NORMAL) E.U./dL Ur Leukocyte Esterase (NEGATIVE) Ur Microscopic Review Urine Culture Comments Nasal Adenovirus (PCR) Nasal B. parapertussis DNA (PCR) Nasal Coronavir 229E PCR Nasal Coronavir HKU1 PCR Nasal Coronavir NL63 PCR Nasal Coronavir OC43 PCR Nasal Enterovir/Rhinovir PCR Nasal Influenza B PCR Nasal Influenza A PCR Nasal Parainfluen 1 PCR Nasal Parainfluen 2 PCR Nasal Parainfluen 3 PCR Nasal Parainfluen 4 PCR Nasal RSV (PCR) Nasal B.pertussis DNA PCR Nasal C.pneumoniae (PCR) Shailesh Human Metapneumo PCR Nasal M.pneumoniae (PCR) Nasal SARS-CoV-2 (PCR) - Diagnostic Imaging Results Diagnostic Imaging Results: positive: Read independently (acute appendicitis) Impression/Plan - Problem List Problem List: acute appendicitis. plan laparoscopic appendectomy. parq held and consent obtained
[2020-08-01] MEDS ORDERED: BUPIVACAINE 0.5%-EPI 1:200000 PF 30 ML VIAL SUBQ ONE ×2 (13:18)
[2020-08-01] MEDS ORDERED: SUGAMMADEX 200 MG/2 ML VIAL IVP ONE ×2 (13:41→14:21)
[2020-08-01] MEDS ORDERED: ACETAMINOPHEN 1,000 MG/100 ML 100 ML IV ONE (13:51)
[2020-08-01] MEDS ORDERED: LACTATED RINGERS 1,000 ML IV ONE (14:41)
--- NOTE | 2020-08-01 14:43 | OPERATIVE REPORT ---
Operative Report - General Procedure Date: 08/01/20 Planned Procedure: lap appendectomy Pre-Op Diagnosis: acute appendicitis Procedure Performed: lap appendectomy Post Op Diagnosis: acute appendicitis - Procedure Note Primary Surgeon: kiran matias Anesthesia Technique: General ET tube, Local Pathology: appendix Estimated Blood Loss (mL): 10 Drain/Tube Type: Other (none) Complications: none
[2020-08-01] MEDS ORDERED: HYDROcod/ACETAM 5/325 MG TABLET PO PRN (14:47)
[2020-08-01] MEDS ORDERED: ACETAMINOPHEN 325 MG TABLET PO PRN (15:03)
--- NOTE | 2020-08-01 15:09 | ANESTHESIA POST OP EVALUATION ---
Anesthesia Post Eval - Post Anesthesia Eval Vitals: Last Vital Signs Temp 36.6 C 08/01/20 15:00 Pulse 81 08/01/20 15:00 Resp 12 08/01/20 15:00 BP 128/83 H 08/01/20 15:00 Pulse Ox 98 08/01/20 15:00 CV Function Including HR & BP: positive: Stable Pain Control: positive: Satisfactory Nausea & Vomiting: positive: Negative Mental Status: positive: Baseline Respiratory Status: Airway Patent Hydration Status: Satisfactory Anesthesia Complications: positive: None
--- NOTE | 2020-08-01 17:35 | OPERATIVE REPORT ---
DATE OF SERVICE: 08/01/2020 Physician: Rizwan Calvo MD PREOPERATIVE DIAGNOSIS: Acute appendicitis. POSTOPERATIVE DIAGNOSIS: Acute appendicitis. PROCEDURE PERFORMED: Laparoscopic appendectomy. SURGEON: Rizwan Calvo MD SUBSTANCE ABUSE RN: None. ANESTHESIA 1. General endotracheal anesthesia. 2. Local anesthesia with Marcaine. COMPLICATIONS: None. SPECIMEN: Appendix. ESTIMATED BLOOD LOSS: None. DRAINS: None. FINDINGS: Acute appendicitis. His appendix was very plump and the mesoappendix was even more enlarg ed and inflamed. He had then darkish fluid in the pelvis; however, no purulence. Given the size of the appendix and the mesoappendix, the specimen was removed piecemeal out of the EndoCatch bag. INDICATIONS FOR PROCEDURE: The patient is a previously well, active, 35-year-old gentleman who devel oped abdominal pain approximately 18 hours prior to surgery. His pain has progressed and localized t o the right lower quadrant. He was seen and evaluated in the Emergency Department. CT scan confirms appendicitis with appendicolith. He presents for surgery. Risks discussed, alternatives discussed. All questions answered and consent obtained. DESCRIPTION OF PROCEDURE: The patient was properly identified and brought to the operating room and placed in the supine position. He voided prior to surgery. Sequential compression devices were plac ed. General endotracheal anesthesia was induced. He was prepped and draped in a sterile fashion and given preoperative antibiotics. Local anesthetic was given to incision areas. An infraumbilical in cision was made. Dissection proceeded down to the fascia. The fascia was incised, lifted upwards an d abdomen entered with a Veress needle. CO2 was insufflated to a pressure of 15. A 12 mm trocar wit h 30-degree scope was placed under vision. There was no evidence of injury from Veress needle or tro car placement. Under direct vision, a 5 mm trocar was placed suprapubic and a 5 mm trocar was placed in the right upper quadrant. The appendix was identified and retracted anterior. The retroperitone al attachments were taken down from the appendix, further mobilizing it more anterior. The adhesions were taken down to the cecum. A plane was then created between the mesoappendix and the appendix ri ght at the cecum. Appendix was then divided including a small portion of the cecum with an Endo-TEMITOPE intestinal load. Secure closure was obtained. The mesoappendix was then divided with an Endo-TEMITOPE va scular load. Hemostasis was further achieved with gentle cautery at the staple line. The abdomen wa s thoroughly irrigated. The appendix was placed in an EndoCatch bag. Again, it would not have been possible to remove the appendix without a 4 cm fascial defect. Rather than do this, the appendix was removed piecemeal. There was no spillage of content along the abdominal wall subcutaneous tissue or fascia. Trocars were removed under direct vision and CO2 evacuated. Hemostasis was assured. The f ascia at the infraumbilical site was closed with a running 0 Vicryl suture. Subcutaneous tissue was irrigated and skin closed with buried interrupted 4-0 Monocryl. Dressings were applied. He tolerate d the procedure very well. TD: 08/01/2020 16:05
[2020-08-01 19:20] VITALS: BP 142/83
== END 2020-08-01 19:44 | disposition home or self-care (01) ==
LOC: ED 16:51 → SDS 19:18 → MS2 19:18 → SDS 08-01 19:44
PROVIDERS: ATTEND Surgery
PROC: 0DTJ4ZZ Resection of Appendix, Percutaneous Endoscopic Approach (ICD-10-PCS; principal; 2020-08-01 13:00)
DX: K35.80 Unspecified acute appendicitis (principal); E66.9 Obesity, unspecified; Z68.31 Body mass index [BMI] 31.0-31.9, adult
CPT/HCPCS: 0202U; 36415; 44970; 74177; 80053; 81003; 83690; 85025; 96365; 96375; 99284; 99285; A9270; J0131; J3490; J7120; Q9967; 81001; 87086

== ENCOUNTER 2021-04-19 15:43 | Outpatient (CLI) | payer BC | END 2021-04-19 15:44 | disposition home or self-care (01) | LOC: COV 15:43 | PROVIDERS: ATTEND Family Medicine | DX: R50.9 Fever, unspecified (principal); R05 Cough; M79.10 Myalgia, unspecified site; R53.83 Other fatigue; R07.0 Pain in throat; R43.8 Other disturbances of smell and taste; R09.81 Nasal congestion; J34.89 Other specified disorders of nose and nasal sinuses; Z20.822 Contact with and (suspected) exposure to COVID-19 ==